=== PATIENT | female | born 1985 | race Caucasian/White ===

== ENCOUNTER 2016-09-30 06:26 | Day surgery (SDC) | payer OTHER ==
[~2016-09-30 06:26] MED LIST: TRIAMCINOLONE ACETONIDE INJ 40 MG/1 ML VIAL INJ PRN
[2016-09-30] MEDS ORDERED: MIDAZOLAM HCL INJ 5 MG/1 ML VIAL ONE (07:59)
[2016-09-30] MEDS ORDERED: FENTANYL CITRATE INJ/PF 100 MCG/2 ML AMPUL ONE (07:59)
[2016-09-30] MEDS ORDERED: SODIUM BICARBONATE 8.4% INJ 50 MEQ/50 ML DISP.SYRIN ONE (08:00)
--- NOTE | 2016-09-30 08:58 | OPERATIVE REPORT E ---
Operative Report NAME: LORRAINE MARQUIS : 1985 AGE: 31Y DATE OF SURGERY: 09/30/2016 ROOM: PREOPERATIVE DIAGNOSIS: CERVICAL RADICULOPATHY. POSTOPERATIVE DIAGNOSIS: CERVICAL RADICULOPATHY. SURGEON: WARNER FRANCISCO M.D. TRANSLATOR DEAF: None. FINDINGS: None. COMPLICATIONS: None. ESTIMATED BLOOD LOSS: Minimal. TISSUE REMOVED OR ALTERED: None. PROCEDURE: After informed consent was obtained, the risks and benefits including bleeding, infection, paralysis, lack of benefits with the patient, the patient consented, the patient was brought back to the procedure suite and placed in the prone position. A final time-out was performed. Conscious sedation was given with 3 mg of Versed and 100 mcg of fentanyl in divided doses. The site was cleansed with chlorhexidine and then sterilely draped. Using intermittent fluoroscopic guidance and a right paramedian approach, an 18-gauge Tuohy was passed in AP and oblique views through the epidural space at C7-T1. Also, resistance was determined at 5.5 cm and after negative aspiration for heme or CSF, 0.5 mL of Isovue was used to confirm epidural spread with appropriate epidurogram. After the negative aspiration, a solution of 80 mg of Kenalog and 4 mL of normal saline was administered into the epidural space. The patient did well, tolerated the procedure and was transferred to the PACU. She will follow up as scheduled. DICTATING PHYSICIAN: WARNER FRANCISCO M.D. [id number] PHY#: [id number] ID: [id number] JOB#: [id number] ACCT: [id number] cc:WARNER FRANCISCO M.D. >
[2016-09-30 13:41] VITALS: BP 102/52
== END 2016-09-30 10:00 | disposition home or self-care (01) ==
LOC: CCL 06:26
PROVIDERS: ATTEND Student in an Organized Health Care Education/Training Program
PROC: 3E0S33Z Introduction of Anti-inflammatory into Epidural Space, Percutaneous Approach (ICD-10-PCS; principal; 2016-09-30)
DX: M54.2 Cervicalgia (principal); Z88.0 Allergy status to penicillin; Z79.899 Other long term (current) drug therapy
CPT/HCPCS: 62320; 77001; Q9966; J3010; J3490 ×3